=== PATIENT | female | born 1955 | race Hispanic/Latino ===

== ENCOUNTER 2019-03-04 20:37 | Emergency (ER) | payer BC ==
[~2019-03-04] VITALS: Ht 147.3 cm; Wt 69.1 kg
[2019-03-04] MEDS ORDERED: KETOROLAC TROMETHAMINE 30 MG/ML VIAL IV STA (20:51)
--- NOTE | 2019-03-04 22:28 | Diagnostic Imaging Report ---
Lumbar Spine Radiographs: 3 views HISTORY: Pain. COMPARISON: None available. DISCUSSION: Some of the osseous structures are partially obscured by stool and bowel gas. There are five non-rib bearing lumbar vertebral bodies. The alignment of the spine is within normal limits. No displaced fracture or compression deformity is identified. Disc Spaces: The disc spaces are well maintained. Mild disc osteophytes in the mid to lower lumbar spine. Facets: Mild sclerotic changes in the lower facet joints. Mild degenerative changes in the sacroiliac joints. IMPRESSION: No acute radiographic osseous abnormality. Mild degenerative changes in the lower lumbar spine and pelvis. Signed by: Burton Mccollum DO on 03/04/2019 10:25 PM
--- NOTE | 2019-03-04 22:29 | Diagnostic Imaging Report ---
X-Ray Right Hip 2 Views HISTORY: Pain. COMPARISON: None available. FINDINGS: Bones: No acute displaced fracture. Osseous alignment is within normal limits. Joints: The joint spaces are well-maintained. Soft tissues: Calcified granulomas in the right gluteal soft tissues. IMPRESSION: No acute radiographic osseous abnormality. Signed by: Burton Mccollum DO on 03/04/2019 10:26 PM
[2019-03-04 22:40] VITALS: BP 162/78
== END 2019-03-04 22:45 | disposition home or self-care (01) ==
LOC: FSED 20:37
DX: M54.5 Low back pain (principal); N30.91 Cystitis, unspecified with hematuria
CPT/HCPCS: 72100; 73502; 81003; 99283; J1885